=== PATIENT | male | born 1960 | race Caucasian/White ===

== ENCOUNTER 2020-10-19 13:02 | Outpatient (REF) | payer OTHER, SELFPAY ==
[2020-10-19 14:28] LABS: Anion Gap 15 (12-20); Blood Urea Nitrogen 12 mg/dL (9-16); Calcium 9.8 mg/dL (8.4-10.2); Carbon Dioxide 24 mmol/L (22-29); Chloride 106 mmol/L (96-108); Estimated Glomerular Filt Rate > 60; Glucose Fasting 99 mg/dL (60-99); Potassium 4.1 mmol/L (3.3-5.1); Sodium 141 mmol/L (135-145)
[2020-10-19 15:05] LABS: Folate 19.6 ng/mL (> or = 4.0); Vitamin B12 585 pg/mL (200-900)
[2020-10-20 08:41] LABS: Lyme Abs Screen <0.90 index
[2020-10-23 14:02] LABS: IgA 329 mg/dL (47-310); IgG 1170 mg/dL (600-1640); IgM 71 mg/dL (50-300)
== END 2020-10-19 13:03 | disposition home or self-care (01) ==
LOC: HO.LAB 13:02
PROVIDERS: Visit Provider Psychiatry & Neurology Neurology
DX: G62.9 Polyneuropathy, unspecified (principal)
CPT/HCPCS: 36415; 80048; 82607; 82746; 82784; 86334; 86617; 86618